=== PATIENT | female | born 1955 | race Caucasian/White ===

== ENCOUNTER 2020-06-30 13:44 | Outpatient (CLI) | payer MEDICARE, MEDICAID, SELFPAY ==
--- NOTE | ~2020-06-30 | MM_ITS ---
EXAMINATION: MM screening robbie BI w holly HISTORY: Screening mammogram TECHNIQUE: Craniocaudal and mediolateral oblique 3-D tomosynthesis images were obtained and synthetic 2-D images were generated. CAD analysis was submitted and interpreted. COMPARISON: 03/19/2019 BREAST PARENCHYMAL COMPOSITION: The breasts are extremely dense, which lowers the sensitivity of mamm ography. FINDINGS: There is no evidence of suspicious mass, calcification, or architectural distortion to sugg est malignancy in either breast. There has been no suspicious interval change. IMPRESSION: 1. No mammographic evidence of malignancy. 2. Recommend routine screening mammography in one year. BI-RADS Category 1: Negative Reviewed, dictated and finalized at location A.
== END 2020-06-30 13:45 | disposition home or self-care (01) ==
LOC: ANHIMG 13:59
PROVIDERS: PCP Family Medicine; Visit Provider Family Medicine
DX: Z12.31 Encounter for screening mammogram for malignant neoplasm of breast (principal)
CPT/HCPCS: 77063; 77067

== ENCOUNTER 2022-09-16 15:05 | Inpatient (IN) | payer MEDICARE, MEDICAID, SELFPAY ==
--- NOTE | ~2022-09-16 | XR_ITS ---
EXAMINATION: XR chest 2V DATE: 09/16/2022 20:46 INDICATION: Pneumonia. TECHNIQUE: Frontal and lateral views of the chest were obtained on 3 radiographs. COMPARISON: CT abdomen and pelvis 09/16/2022 FINDINGS: The lungs are hyperexpanded, consistent with emphysema. There are airspace opacities with v olume loss in left lower lobe, consistent with atelectasis. There is a reticulonodular pattern in rig ht lung and left lower lung zone. There is a small left pleural effusion. No pneumothorax. The heart size is normal. Pectus excavatum is noted. IMPRESSION: 1. Reticulonodular pattern in right lung and left lower lung zone, consistent with pneumonia. 2. Left lower lobe atelectasis. Consider chest CT with contrast to exclude bronchial obstruction. 3. Emphysema. 4. Small left pleural effusion. Reviewed, dictated and finalized at location A. 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 Reticulonodular pattern in right lung and left lower lung zone, consistent w ith pneumonia. 2. Left lower lobe atelectasis. Consider chest CT with contrast to exclude bron chial obstruction. 3. Emphysema. 4. Small left pleural effusion.
--- NOTE | ~2022-09-16 | CT_ITS ---
EXAMINATION: CT abdomen pelvis w con DATE: 09/16/2022 19:59 INDICATION: Right lower quadrant abdominal pain. TECHNIQUE: Computed tomography (CT) of the abdomen and pelvis was performed with 97 mL Omnipaque 350 intravenous contrast. Automated exposure control and iterative reconstruction technique were employed . The dose-length product was 165.45 mGy-cm. COMPARISON: Head CT 12/28/2016 FINDINGS: The visualized portions of the lung bases demonstrate atelectasis in left lower lobe. There are tree-in-bud opacities in the lungs bilaterally. There is a trace left pleural effusion. The hear t size is normal. There is a trace pericardial effusion. There are cysts in the liver measuring up to 8 mm. The spleen, gallbladder, pancreas, adrenal glands, and kidneys are normal. There are no dilate d loops of bowel. The appendix is not visualized. There is a right obturator hernia containing a wall of small bowel. There is a chronic 2.9 x 1.7 cm cyst in the left retroperitoneum, likely a lymphangi keira. There are no pathologically enlarged lymph nodes. There is no free intraperitoneal fluid. There is lumbar levoscoliosis and mild spondylosis. IMPRESSION: 1. Right obturator hernia containing a wall of nonobstructed small bowel. 2. Bilateral pneumonia. Reviewed, dictated and finalized at location A. [employer]SELING [employer]W
--- NOTE | ~2022-09-16 | CT_ITS ---
EXAMINATION:CT diagnostic chest w con DATE: 09/16/2022 21:58 INDICATION: Abdominal chest radiographs. TECHNIQUE: Computed tomography (CT) of the chest was performed with 75 mL Omnipaque 350 intravenous c ontrast. Automated exposure control and iterative reconstruction technique were employed. The dose-le ngth product (DLP) was 139.95 mGy-cm. COMPARISON: Chest CT 11/21/2016 FINDINGS: There is severe emphysema. There are centrilobular nodules and tree-in-bud opacities in rig ht lower lobe. There are airspace opacities with air bronchograms and volume loss in right middle lob e. There are centrilobular nodules in anterior segment right upper lobe. There are tree-in-bud opacit ies and centrilobular nodules in left upper lobe. There are airspace opacities in lingula. There is c omplete collapse of left lower lobe. There is mucous plugging in left lower lobe. There is a trace le ft pleural effusion. The heart size is normal. No pericardial effusion. There is mild mediastinal and right hilar lymphadenopathy. Calcified left hilar lymph nodes are consistent with old granulomatous disease. There is pectus excavatum. IMPRESSION: 1. Diffuse lung disease, consistent with pneumonia. 2. Complete collapse of left lower lobe, likely secondary to mucous plugging. 3. Severe emphysema. 4. Mild mediastinal and right hilar lymphadenopathy, likely reactive. Reviewed, dictated and finalized at location A. AR TURNER
[2022-09-16 15:15] VITALS: BP 138/87; PULSE 88; RESP 20; TEMP 37; O2SAT 92
[2022-09-16 15:51] LABS: Basophils Absolute Auto 0.1 K/mm3 (0.0-0.1); Basophils Percent Auto 0.5 % (0.2-1.2); Eosinophils Absolute Auto 0.1 K/mm3 (0-0.3); Eosinophils Percent Auto 0.7 % (0-4.4); Hemoglobin 14.7 g/dL (12.0-15.0); Immature Granulocyte Absolute 0.07 K/mm3 (0.00-0.031); Immature Granulocyte Percent A 0.5 % (0-0.5); Lymphocytes Absolute Auto 1.31 K/mm3 (0.9-3.2); Lymphocytes Percent Auto 9.2 % (18.3-44.2); Mean Corpuscular HGB Conc 32.7 g/dl (32-36); Mean Corpuscular Hemoglobin 31.9 pg (26-34); Mean Corpuscular Volume 97.6 fl (80-100); Mean Platelet Volume 8.9 fl (7.4-10.4); Monocytes Absolute Auto 0.7 K/mm3 (0.1-0.6); Monocytes Percent Auto 5.1 % (2.6-8.5); Neutrophils Absolute Auto 11.9 K/mm3 (1.3-6.7); Platelet Count Result 273 k/mm3 (150-375); Red Blood Count 4.61 M/mm3 (4.2-5.4); Red Cell Distribution Width 12.6 % (11.5-14.5); White Blood Count 14.2 K/mm3 (4.5-10.0)
[2022-09-16 15:59] LABS: Alanine Aminotransferase 25 U/L (6-35); Albumin Level 3.9 g/dL (3.5-5.1); Alkaline Phosphatase 64 U/L (38-126); Anion Gap 13 mmol/L (8-16); Aspartate Amino Transferase 51 U/L (14-36); Blood Urea Nitrogen 12 mg/dL (7-17); Calcium 8.4 mg/dL (8.4-10.2); Carbon Dioxide 35 mmol/L (22-30); Chloride 87 mmol/L (98-107); Estimated CRCL calculation 135 ml/min; Estimated Glomerular Filt Rate > 60; Glucose 94 mg/dL (65-110); Potassium 3.4 mmol/L (3.4-5.0); Sodium 135 mmol/L (137-145)
[2022-09-16 16:34] LABS: Lipase < 10 U/L (23-300)
[2022-09-16 18:29] VITALS: BP 132/65; PULSE 95; RESP 18; TEMP 36.7; O2SAT 92
--- NOTE | 2022-09-16 19:13 | ED.ABDPAIN ---
HPI - Abdominal Pain General Chief Complaint: Abdominal Pain <Roxanne Roach PA-C - Last Filed: 09/17/22 02:09> Stated Complaint: abdominal pain x 2 days <Roxanne Roach PA-C - Last Filed: 09/17/22 02:09> Time Seen by Provider: 09/16/22 19:08 <Roxanne Roach PA-C - Last Filed: 09/17/22 02:09> History of Present Illness HPI narrative: Patient is a 67-year-old female with a history of COPD on 4L home o2, here for evaluation of right sided abdominal pain for the past 2 days. Patient does not elaborate on the complaint and is a poor historian. Additionally notes urinary frequency, but denies urgency or hematuria. Denies history of UTIs. Additionally states that she is nauseated but denies vomiting. She tells me she has been coughing for several days, shortness of breath is at her baseline. She is unsure when her last bowel movement was. No chest pain, fevers or chills, rashes. <Roxanne Roach PA-C - Last Filed: 09/17/22 02:09> Related Data Home Medications: Home Medications Medication Instructions Recorded Confirmed albuterol sulfate 2.5 mg/3 mL 2.5 mg inhalation Q4H PRN 09/17/22 09/17/22 (0.083 %) solution for nebulization Shortness Of Breath albuterol sulfate 90 mcg/actuation 2 puff inhalation Q4H PRN 09/17/22 09/17/22 aerosol inhaler Shortness Of Breath buspirone 5 mg tablet 5 mg PO TID PRN Anxiety 09/17/22 09/17/22 cetirizine 10 mg tablet 10 mg PO DAILY 09/17/22 09/17/22 fluticasone fur. 100 mcg-umeclid 1 inh inhalation DAILY 09/17/22 09/17/22 62.5 mcg-vilant 25 mcg inhalat.powder (Trelegy Ellipta) hydrocodone 10 mg-acetaminophen 1 tablet PO Q6H PRN Pain 09/17/22 09/17/22 325 mg tablet ipratropium bromide 0.02 % 0.5 mg inhalation TID PRN 09/17/22 09/17/22 solution for inhalation Shortness Of Breath levofloxacin 750 mg tablet 750 mg PO DAILY 09/17/22 09/17/22 levothyroxine 75 mcg tablet 75 mcg PO DAILY 09/17/22 09/17/22 nicotine 21 mg/24 hr daily 21 mg transdermal DAILY 09/17/22 09/17/22 transdermal patch omeprazole 20 mg capsule,delayed 20 mg PO DAILY 09/17/22 09/17/22 release sertraline 50 mg tablet 50 mg PO DAILY 09/17/22 09/17/22 sucralfate 1 gram tablet 1 g PO AC 09/17/22 09/17/22 <AISHA Pretty Last Filed: 09/17/22 02:09> Allergies/Adverse Reactions: Allergies Allergy/AdvReac Type Severity Reaction Status Date / Time famotidine Allergy Intermediate NAUSEA Verified 09/17/22 01:54 tramadol Allergy Intermediate NAUSEA/VOMI Verified 09/17/22 01:54 TTING ketorolac Allergy Unknown Anxiety Verified 09/17/22 01:54 Penicillins Allergy Unknown Rash Verified 09/17/22 01:54 Sulfa (Sulfonamide Allergy Unknown Rash Verified 09/17/22 01:54 Antibiotics) <AISHA Pretty Last Filed: 09/17/22 02:09> Review of Systems Review of Systems: Gen: Denies fevers or chills Eyes: Denies eye pain or visual change ENT: Denies congestion Respiratory: Denies shortness of breath or cough CV: Denies chest pain or palpitations GI: Reports right-sided abdominal pain and nausea. : reports urinary frequency. Denies burning, urgency,or hematuria Musculoskeletal: Denies back pain or muscle pain Neuro: Denies numbness, tingling, weakness or focal weakness Skin: Denies rash Except as documented, all other systems reviewed and negative <AISHA Pretty Last Filed: 09/17/22 02:09> [facility] Family History Family History: Family History (Updated 06/21/18 @ 09:27 by DOCTOR UNKNOWN) Mother Family history of congestive heart failure, Onset Age: 67 <AISHA Pretty Last Filed: 09/17/22 02:09> Social History Social History: Social History Smoking packs per day: 1 Smoking cigarettes per day: 20.0 Years smoked: 50 Smoking pack-years: 50.00 Smoking status: Current every day smoker Tobacco type: cigarettes Alcohol intake: never Substance use: never
[2022-09-16 19:20] LABS: Appearance Urine Clear (Clear); Bilirubin Urine 2+ (Negative); Blood Urine Negative (Negative); Color Urine Yellow (Yellow); Glucose Urine UA Negative (Negative); Ketones Urine 4+ mg/dL (Negative); Leukocyte Esterase Ur Trace LEU/UL (Negative); Nitrate Urine Negative (Negative); Protein Urine Negative (Negative); pH Urine 6.5 (5.0-9.0)
[2022-09-16 19:25] LABS: Mucus Urine Few /lpf; RBC Urine 0-2 /hpf (0-2); Squamous Epithelial Cell Urine Rare /hpf (Few)
[2022-09-16 19:26] LABS: Add Urine Microscopic? YES
--- NOTE | 2022-09-16 19:30 | ECG_ITS ---
Measurements Intervals [place] Rate: 96 P: 82 IN: 137 QRS: 99 QRSD: 90 T: 75 QT: 346 QTc: 437 Interpretive Statements SINUS RHYTHM RIGHT AXIS DEVIATION RIGHT ATRIAL ENLARGEMENT LEFT ATRIAL ENLARGEMENT CONSIDER ANTERIOR INFARCT, AGE INDETERMINATE BASELINE ARTIFACT- I, II, III, AVR, AVL, AVF, V1-V6 ABNORMAL ECG NO PREVIOUS ECG AVAILABLE FOR COMPARISON Electronically Signed On 09-17-2022 6:43:13 [employer]ODUCTION WORK[employer] by Elvin Boles D.O.
[2022-09-16] MEDS: SODIUM CHLORIDE 0.9% IV 1,000 ML 999 ML IV CONT ×2 (19:43→22:34)
[2022-09-16 21:58] LABS: Lactic Acid Reflex 0.9 mmol/L (0.7-2.0)
[2022-09-16 22:24] LABS: Influenza A QL RT-PCR Negative (Negative); Influenza B QL RT-PCR Negative (Negative); SARS-CoV-2 RNA PCR Negative
[2022-09-16 22:35] VITALS: BP 111/65; PULSE 96; RESP 22; O2SAT 97
[2022-09-16] MEDS: ALBUTEROL SULFATE NEB 2.5 MG/3 ML INH 5 MG INHALATION (23:26)
[2022-09-16 23:46] LABS: Alveolar/Arterial O2 Gradient 142.2 mmHg; Base Excess ABG 4.4 mEq/l (+/-2.0); Fractional Inspired Oxygen 36 %; HCO3 ABG 30.3 mEq/l (22.0-26.0); Oxygen Content ABG 18.1 %vol (16.0-22.0); Oxygen Saturation ABG 89.5 % (95.0-100.0); Oxyhemoglobin 88.3 % THb (90.0-100.0); PCO2 ABG 49.5 mmHg (35.0-45.0); PO2 ABG 57.1 mmHg (80.0-100.0); PO2 FiO2 Ratio Arterial Blood 1.59 %; Total Hemoglobin 14.6 g/dL (12.0-18.0); pH ABG 7.404 (7.350-7.450)
[2022-09-16 23:48] LABS: Device NASAL CANNULA; Modified Allen's Test Pass; Site Drawn RIGHT RADIAL
[2022-09-16 23:59] VITALS: PULSE 92; RESP 26
[2022-09-17] VITALS (15 sets, daily range): BP systolic 108–124; BP diastolic 42–62; PULSE 78–96; RESP 16–20; TEMP 36.7–37.2; O2SAT 93–97; BMI 12.2; BMI 12.4
[2022-09-17] MEDS: SODIUM CHLORIDE 0.9% IV 1,000 ML 150 ML IV CONT (00:27)
--- NOTE | 2022-09-17 01:12 | PC.NURSE ---
This patient, Charlotte De La Torre, was admitted to 2 Medical Room 242-01. Patient/family oriented to hospital policies and general routines including ID bracelet, bed and alarms, visiting hours, pain management, procedures, bathroom and other care routines, personal items, smoking policy, room service/diet, and visiting hours. Information on how to activate the Rapid Response Team has been discussed. Patient/Family are encouraged to report perceived risks to care and to ask questions if they do not understand what they are told or what they should do. arrived at 0035
--- NOTE | 2022-09-17 06:14 | PC.NURSE ---
called DO Bethea pt c/o pain, pt awake now pt didn't have difficulty swallowing water at bedside, DO Bethea asked this nurse to see how pt did with swallowing, pt swallowed without difficulty. Pt informed DO Bethea to come see pt and restart medication.
--- NOTE | 2022-09-17 06:35 | PM.IMHP ---
H&P: HPI History of Present Illness Date/Time: 09/17/22 06:35 Chief Complaint: Shortness of breath Narrative: 67-year-old female with a past medical history of COPD, chronic hypoxic respiratory failure, hypothyroidism, anxiety depression, GERD and chronic tobacco use who presented to the ER initially with a complaint of abdominal pain and then subsequently changed her chief complaint to shortness of breath. The patient is a poor historian and is only giving short answers that are not helpful. I asked the patient infected obtain records from her last hospitalization which was evidently at [facility] recently and the patient refused to give permission. She stated that she did not treat staff well. She does not think that they treated will was wrong with her appropriately. She could not tell me what was wrong with her at that time makes ever that she could not breathe. The patient has been having a cough productive of green sputum for ?quite a while?. She cannot tell me exactly how long that this is she says a lease has been going on for a month or more. She denies any fevers or chills. She denies any significant chest pain. She states that she cannot breathe. However she is still continued to smoke up to a pack of cigarettes per day. She has had progressive weight loss but cannot tell me how much weight she has lost or over what time period. However her BMI in an office note from 2018 was 19. Her weight at that time was 42.2 kg. There is a note from Dr. Boles's office that stated the patient has a history of a mediastinal mass for which she was supposed to have a bronchoscopy. 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 The patient states she never went for biopsy of this. She reports that she does not know when she out a last bowel movement. She reports frequent headaches. She simply shrugs 1 ask her review of systems regarding her urinary track or stomach. Her initial complaints to the ER was abdominal pain and she recall reported right lower abdominal pain into the . On exam the patient's abdomen is diffusely tender and firm. No palpable hernia appreciated. Hypoactive bowel sound. Voluntary guarding. Review of systems limited due to lack of patient cooperation. Review of Systems Review of Systems: 12 systems were reviewed with pertinent positives and negatives per HPI. Except as documented in the HPI, all other systems were reviewed and are negative. 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 Chronic respiratory failure with hypoxia, on home O2 therapy Continuous tobacco abuse COPD (chronic obstructive pulmonary disease) Kidney stones Migraines Myocardial infarction (~2000) Ovarian cancer Severe protein-calorie malnutrition Surgical History Surgical History (Updated 09/17/22 @ 07:43 by Jayleen Kaur DO) S/P cubital tunnel release Bilateral October 2015 right December 2015 left Status post cataract extraction of both eyes with insertion of intraocular lens Status post total abdominal hysterectomy and bilateral salpingo-oophorectomy (LAURENT-BSO) Family History Family History Mother Family history of congestive heart failure, Onset Age: 67 Social History Social History (Updated 09/17/22 @ 07:42 by Jayleen Kaur DO) Social History: The patient states she lives with her son and daughter. She has smoked a pack of cigarettes per day since he was a teenager. She denies any significant alcohol or illicit substance use. Code status: Full code Surrogate decision makers: Her children. However she would not want long-term intubation or trach and PEG. Smoking packs per day: 1 Smoking cigarettes per day: 20.0 Years smoked: 50 Smokin
[2022-09-17] MEDS: IPRATROPIUM BR 0.02% INH SOLN 0.5 MG/2.5 ML VIAL INHALATION ×3 (08:11→19:56)
[2022-09-17] MEDS: ALBUTEROL SULFATE NEB 2.5 MG/3 ML INH 5 MG INHALATION ×3 (08:11→19:55)
[2022-09-17] MEDS: guaiFENesin 12 HR 600 MG TABCR 1200 MG PO ×2 (09:00→20:09)
[2022-09-17] MEDS: LEVOTHYROXINE SODIUM 75 MCG TABLET PO (09:02)
[2022-09-17] MEDS: SERTRALINE HCL 50 MG TABLET PO (09:02)
[2022-09-17] MEDS: LORATADINE 10 MG TABLET PO (09:02)
[2022-09-17] MEDS: PANTOPRAZOLE 40 MG TABLET PO (09:02)
[2022-09-17] MEDS: SUCRALFATE 1 GM TABLET PO ×3 (09:02→17:21)
[2022-09-17] MEDS: FLUTICASONE/UMECLIDIN/VILANTER 100-62.5-25 MCG ELLIPTA 1 PUFF INHALATION (09:11)
--- NOTE | 2022-09-17 11:43 | PM.IMPN ---
Progress Note: A&P Assessment and Plan (1) Chronic respiratory failure with hypoxia, on home O2 therapy: Code(s): J96.11 - Chronic respiratory failure with hypoxia; Z99.81 - Dependence on supplemental oxygen Status: Acute Assessment and Plan: -4 L of O2 with a pulse ox of 94 -ABG revealed compensated respiratory alkalosis -nebulizer treatment q4 hours -respiratory therapy consulted -patient receiving ipratropium bromide and albuterol every 6 hours -continue Trelegy Ellipta (2) Bilateral pneumonia: Qualifiers: Lung location: unspecified part of lung Pneumonia type: due to unspecified organism Qualified Code(s): J18.9 - Pneumonia, unspecified organism Code(s): J18.9 - Pneumonia, unspecified organism Status: Acute Assessment and Plan: -chest x-ray revealed bilateral pneumonia, emphysema, small left pleural effusion. CT chest ordered per radiologist's recommendation to rule out bronchial obstruction. CT chest revealed complete collapse of left lower lobe, likely secondary to mucus plugging. -patient prescribed ceftriaxone 1 g and azithromycin 500 mg -Legionella pneumobilia Ag, Pneumococcal antigen, mycoplasma pneumonia Ab, Procalcitonin ordered. -blood cultures pending -sputum culture pending (3) Shortness of breath: Code(s): R06.02 - Shortness of breath Status: Acute Assessment and Plan: See above (4) Severe protein-calorie malnutrition: Code(s): E43 - Unspecified severe protein-calorie malnutrition Status: Acute Assessment and Plan: BMI of 12.4 Patient on regular diet (5) Continuous tobacco abuse: Code(s): Z72.0 - Tobacco use Status: Acute Assessment and Plan: -nicotine patch p.r.n. Time Spent With Patient Time with patient: Greater than 35 minutes Subjective Date/time seen: 09/17/22 11:43 Interval history: 67-year-old female with a chronic history of COPD, tobacco abuse, chronic respiratory failure with hypoxia, and anorexia. Patient is sitting on the edge of the bed in and is standoffish when interviewing patient about symptoms. Patient presented to the ER on 09/25/2022 with complaints of shortness of breath. She appears to be very cachectic BMI of 12.4. Patient tripoding and unable to complete full sentences without becoming short of breath. Patient does state that she has some chest discomfort with inspiration. Patient states that she is still having some shortness of breath and she has a mild cough with sputum production. Patient denies fever, body aches, chest pain, congestion, swelling of the lower extremity, Exam Narrative: GENERAL: Cachectic, tripoding HENMT: moist mucous membranes EYES: EOM intact b/l NECK: no lymphadenopathy RESPIRATORY: Distant breath sounds, labored breathing CARDIO: RRR GI: soft, nontender, bowel sounds present SKIN: no rashes EXTREMITIES: no edema, redness or tenderness Objective Data Vital Signs Vital Signs: Vital Signs - 24 hr 09/16/22 15:15 09/16/22 18:29 09/16/22 22:35 Temperature 98.6 F 98.1 F Pulse Rate 88 95 96 Respiratory Rate 20 18 22 H Blood Pressure 138/87 132/65 111/65 Pulse Oximetry 92 92 97 Oxygen Delivery Nasal Cannula Oxygen Flow Rate 4 09/16/22 23:59 09/17/22 01:15 09/17/22 00:35 Temperature 98.9 F Pulse Rate 92 88 Respiratory Rate 26 H 18 Blood Pressure 109/45 L Pulse Oximetry 97 97 Oxygen Delivery Nasal Cannula Oxygen Flow Rate 4 09/17/22 05:15 09/17/22 06:16 09/17/22 08:13 Temperature 98.0 F 98.0 F Pulse Rate 82 82 78 Respiratory Rate 17 17 18 Blood Pressure 124/56 L 124/56 L Pulse Oximetry 96 96 Oxygen Delivery Nasal Cannula Oxygen Flow Rate 4 09/17/22 08:18 09/17/22 08:26 Temperature Pulse Rate 78 89 Respiratory Rate 18 20 Blood Pressure Pulse Oximetry 94 Oxygen Delivery Nasal Cannula Oxygen Flow Rate 4 Intake/Output Intake/Output: Intake & Output 09/14/22 09/15/22
[2022-09-17 11:44] LABS: Hematocrit 40.7 % (37.0-47.0); Hemoglobin 13.3 g/dL (12.0-15.0); Mean Corpuscular HGB Conc 32.7 g/dl (32-36); Mean Corpuscular Hemoglobin 31.7 pg (26-34); Mean Corpuscular Volume 97.1 fl (80-100); Mean Platelet Volume 9.1 fl (7.4-10.4); Platelet Count Result 297 k/mm3 (150-375); Red Blood Count 4.19 M/mm3 (4.2-5.4); Red Cell Distribution Width 12.7 % (11.5-14.5); White Blood Count 13.3 K/mm3 (4.5-10.0)
[2022-09-17 12:22] LABS: Anion Gap 8 mmol/L (8-16); Blood Urea Nitrogen 10 mg/dL (7-17); Calcium 7.2 mg/dL (8.4-10.2); Carbon Dioxide 32 mmol/L (22-30); Chloride 98 mmol/L (98-107); Estimated CRCL calculation 75 ml/min; Estimated Glomerular Filt Rate > 60; Glucose 97 mg/dL (65-110); Potassium 3.2 mmol/L (3.4-5.0); Sodium 138 mmol/L (137-145)
[2022-09-17 12:43] LABS: Procalcitonin 0.1 ng/mL
[2022-09-17] MEDS: HYDROcodone/acetaminophen (*CRX) 10-325 MG TABLET 1 TAB PO (14:15)
[2022-09-17] MEDS: POTASSIUM CHLORIDE 20 MEQ PACKET (FOR LIQUID) 40 MEQ PO (14:15)
[2022-09-18] VITALS (10 sets, daily range): BP systolic 114–144; BP diastolic 55–60; PULSE 74–94; RESP 16–20; TEMP 36.5–37.2; O2SAT 90–93
[2022-09-18] MEDS: HYDROcodone/acetaminophen (*CRX) 10-325 MG TABLET 1 TAB PO ×2 (00:59→12:11)
[2022-09-18] MEDS: IPRATROPIUM BR 0.02% INH SOLN 0.5 MG/2.5 ML VIAL INHALATION ×3 (01:40→14:50)
[2022-09-18] MEDS: ALBUTEROL SULFATE NEB 2.5 MG/3 ML INH 5 MG INHALATION ×3 (01:40→14:50)
[2022-09-18 05:35] LABS: Basophils Percent Auto 0.1 % (0.2-1.2); Eosinophils Percent Auto 0.1 % (0-4.4); Hematocrit 34.3 % (37.0-47.0); Hemoglobin 11.2 g/dL (12.0-15.0); Immature Granulocyte Absolute 0.07 K/mm3 (0.00-0.031); Immature Granulocyte Percent A 0.7 % (0-0.5); Lymphocytes Absolute Auto 1.59 K/mm3 (0.9-3.2); Lymphocytes Percent Auto 16.6 % (18.3-44.2); Mean Corpuscular HGB Conc 32.7 g/dl (32-36); Mean Corpuscular Hemoglobin 31.6 pg (26-34); Mean Corpuscular Volume 96.9 fl (80-100); Monocytes Absolute Auto 0.7 K/mm3 (0.1-0.6); Monocytes Percent Auto 7.2 % (2.6-8.5); Neutrophils Absolute Auto 7.2 K/mm3 (1.3-6.7); Neutrophils Percent Auto 75.3 % (45.5-73.1); Platelet Count Result 274 k/mm3 (150-375); Red Blood Count 3.54 M/mm3 (4.2-5.4); Red Cell Distribution Width 12.6 % (11.5-14.5); White Blood Count 9.6 K/mm3 (4.5-10.0)
[2022-09-18 05:51] LABS: Anion Gap 4 mmol/L (8-16); Blood Urea Nitrogen 9 mg/dL (7-17); Calcium 7.1 mg/dL (8.4-10.2); Carbon Dioxide 36 mmol/L (22-30); Chloride 94 mmol/L (98-107); Estimated CRCL calculation 75 ml/min; Estimated Glomerular Filt Rate > 60; Glucose 86 mg/dL (65-110); Lactate Dehydrogenase 151 U/L (120-246); Potassium 2.6 mmol/L (3.4-5.0); Sodium 134 mmol/L (137-145)
--- NOTE | 2022-09-18 06:00 | PC.NURSE ---
REPEAT LABS AT 1300 CALL HOSPITALIST IF POTASSIUM LESS THAN 3.[address] COLIN
[2022-09-18] MEDS: POTASSIUM CHLORIDE 20 MEQ TABLET 80 MEQ PO (06:04)
[2022-09-18] MEDS: LEVOTHYROXINE SODIUM 75 MCG TABLET PO (06:05)
[2022-09-18] MEDS: LORATADINE 10 MG TABLET PO (08:44)
[2022-09-18] MEDS: SERTRALINE HCL 50 MG TABLET PO (08:45)
[2022-09-18] MEDS: PANTOPRAZOLE 40 MG TABLET PO (08:45)
[2022-09-18] MEDS: FLUTICASONE/UMECLIDIN/VILANTER 100-62.5-25 MCG ELLIPTA 1 PUFF INHALATION (09:35)
[2022-09-18] MEDS: POTASSIUM CHLORIDE INJ 40 MEQ in SODIUM CHLORIDE 0.9% IV 500 ML 130 MEQ IVPB (10:03)
--- NOTE | 2022-09-18 11:49 | PM.IMPN ---
Progress Note: A&P Assessment and Plan (1) Chronic respiratory failure with hypoxia, on home O2 therapy: Code(s): J96.11 - Chronic respiratory failure with hypoxia; Z99.81 - Dependence on supplemental oxygen Status: Acute Assessment and Plan: -4 L of O2 with a pulse ox of 94 -ABG revealed compensated respiratory alkalosis -nebulizer treatment q4 hours -respiratory therapy consulted -patient receiving ipratropium bromide and albuterol every 6 hours -continue Trelegy Ellipta (2) Bilateral pneumonia: Qualifiers: Lung location: unspecified part of lung Pneumonia type: due to unspecified organism Qualified Code(s): J18.9 - Pneumonia, unspecified organism Code(s): J18.9 - Pneumonia, unspecified organism Status: Acute Assessment and Plan: -chest x-ray revealed bilateral pneumonia, emphysema, small left pleural effusion. CT chest ordered per radiologist's recommendation to rule out bronchial obstruction. CT chest revealed complete collapse of left lower lobe, likely secondary to mucus plugging. -patient prescribed ceftriaxone 1 g and azithromycin 500 mg -Legionella pneumobilia Ag, Pneumococcal antigen, mycoplasma pneumonia Ab, Procalcitonin ordered. -blood cultures no growth to date -sputum culture: Few epithelial cells and many white blood cells seen (3) Shortness of breath: Code(s): R06.02 - Shortness of breath Status: Acute Assessment and Plan: See above (4) Severe protein-calorie malnutrition: Code(s): E43 - Unspecified severe protein-calorie malnutrition Status: Acute Assessment and Plan: BMI of 12.4 Patient on regular diet Discussed patient's weight with her. Patient states that she has lost around 20 lb over this past year. She states that when she is at work she just does not remember to eat. Patient is distant and is not forthcoming with information. Discussed comfort measures with patient and she was not receptive. (5) Noncompliance: Code(s): Z91.199 - Patient's noncompliance with other medical treatment and regimen due to unspecified reason Status: Acute Assessment and Plan: -patient has refused several medications including her DVT prophylactic heparin, her potassium p.o., Carafate, and Mucinex. (6) Hypokalemia: Code(s): E87.6 - Hypokalemia Status: Acute Assessment and Plan: -potassium this morning 2.6 -patient receiving 40 mEq potassium chloride IV x1 -patient given IV potassium chloride due to refusal of p.o. medication -patient's potassium after 40 mEq IV of potassium chloride was 3.6 (7) Continuous tobacco abuse: Code(s): Z72.0 - Tobacco use Status: Acute Assessment and Plan: -nicotine patch p.r.n. Time Spent With Patient Time with patient: Greater than 35 minutes Subjective Date/time seen: 09/18/22 11:49 Interval history: 67-year-old female with a chronic history of COPD, tobacco abuse, chronic respiratory failure with hypoxia, and anorexia. Patient is lying in bed in and is standoffish when interviewing patient about symptoms. Patient complains of shortness of breath at rest. She is cachectic with a BMI of 12.4. Patient tripoding and unable to complete full sentences without becoming short of breath. Patient does state that she has some chest discomfort with inspiration. Patient states that she has a mild cough with sputum production. Patient denies fever, body aches, chest pain, congestion, swelling of the lower extremity. Exam Narrative: GENERAL: Cachectic, tripoding HENMT: moist mucous membranes EYES: EOM intact b/l NECK: no lymphadenopathy RESPIRATORY: Distant breath sounds, labored breathing CARDIO: RRR GI: soft, nontender, bowel sounds present SKIN: no rashes EXTREMITIES: no edema, redness or tenderness Objective Data Vital Signs Vital Signs: Vital Signs - 24 hr 09/17/22 11:50 09/17/22 14:12 09/17/22 14:28 Temperature P
[2022-09-18] MEDS: SUCRALFATE SUSP 100 MG/ML 10 ML UDC 1000 MG PO ×3 (12:07→20:19)
[2022-09-18 13:05] LABS: Anion Gap 2 mmol/L (8-16); Blood Urea Nitrogen 7 mg/dL (7-17); Calcium 7.2 mg/dL (8.4-10.2); Carbon Dioxide 35 mmol/L (22-30); Chloride 96 mmol/L (98-107); Estimated CRCL calculation 75 ml/min; Estimated Glomerular Filt Rate > 60; Glucose 111 mg/dL (65-110); Potassium 3.6 mmol/L (3.4-5.0); Sodium 133 mmol/L (137-145)
--- NOTE | 2022-09-18 22:18 | PCRCNOTE ---
Window of time for administration has passed. See next scheduled administration.
[2022-09-19] VITALS (11 sets, daily range): BP systolic 125–134; BP diastolic 52–71; PULSE 72–95; RESP 15–20; TEMP 36.7–37.1; O2SAT 94–96; BMI 12.4
[2022-09-19] MEDS: HYDROcodone/acetaminophen (*CRX) 10-325 MG TABLET 1 TAB PO ×3 (00:12→18:54)
[2022-09-19] MEDS: ALBUTEROL SULFATE NEB 2.5 MG/3 ML INH 5 MG INHALATION ×3 (02:24→21:00)
[2022-09-19] MEDS: IPRATROPIUM BR 0.02% INH SOLN 0.5 MG/2.5 ML VIAL INHALATION ×3 (02:24→21:00)
[2022-09-19] MEDS: SODIUM CHLOR 3% 15 ML NEB (RESPIRATORY THERAPY) 6 ML INHALATION ×2 (05:45→07:21)
[2022-09-19 06:22] LABS: Hemoglobin 11.5 g/dL (12.0-15.0); Mean Corpuscular HGB Conc 32.9 g/dl (32-36); Mean Corpuscular Hemoglobin 31.5 pg (26-34); Mean Corpuscular Volume 95.9 fl (80-100); Mean Platelet Volume 9.1 fl (7.4-10.4); Platelet Count Result 327 k/mm3 (150-375); Red Blood Count 3.65 M/mm3 (4.2-5.4); Red Cell Distribution Width 12.5 % (11.5-14.5); White Blood Count 5.8 K/mm3 (4.5-10.0)
[2022-09-19 06:49] LABS: Anion Gap 3 mmol/L (8-16); Blood Urea Nitrogen 6 mg/dL (7-17); Calcium 7.2 mg/dL (8.4-10.2); Carbon Dioxide 38 mmol/L (22-30); Chloride 95 mmol/L (98-107); Estimated CRCL calculation 75 ml/min; Estimated Glomerular Filt Rate > 60; Glucose 81 mg/dL (65-110); Magnesium 2.1 mg/dL (1.6-2.3); Potassium 3.2 mmol/L (3.4-5.0); Sodium 136 mmol/L (137-145)
[2022-09-19] MEDS: FLUTICASONE/UMECLIDIN/VILANTER 100-62.5-25 MCG ELLIPTA 1 PUFF INHALATION (07:22)
--- NOTE | 2022-09-19 07:52 | PM.DS ---
DS: Admitting Diagnosis Discharge Date 09/19/2022 Admitting Diagnosis Bilateral pneumonia DS: Discharge Diagnosis Discharge Diagnosis (1) Chronic respiratory failure with hypoxia, on home O2 therapy: Code(s): J96.11 - Chronic respiratory failure with hypoxia; Z99.81 - Dependence on supplemental oxygen Status: Acute (2) Bilateral pneumonia: Qualifiers: Lung location: unspecified part of lung Pneumonia type: due to unspecified organism Qualified Code(s): J18.9 - Pneumonia, unspecified organism Code(s): J18.9 - Pneumonia, unspecified organism Status: Acute (3) Shortness of breath: Code(s): R06.02 - Shortness of breath Status: Acute (4) Severe protein-calorie malnutrition: Code(s): E43 - Unspecified severe protein-calorie malnutrition Status: Acute (5) Noncompliance: Code(s): Z91.199 - Patient's noncompliance with other medical treatment and regimen due to unspecified reason Status: Acute (6) Hypokalemia: Code(s): E87.6 - Hypokalemia Status: Acute (7) Continuous tobacco abuse: Code(s): Z72.0 - Tobacco use Status: Acute DS: Summary Hospital Course Reason for hospitalization: Bilateral pneumonia with COPD exacerbation Hospital Course: 64-year-old female with a history of chronic emphysema and severe malnutrition. Patient presented to the ER on 09/16/2022 with complaints of abdominal pain, nausea, and cough. Patient is on 4 L of O2 at home. Patient's workup in the ED consisted of checks x-ray, CBC, CMP, and UA. White blood cell count of 14.2 on presentation. Patient's chest x-ray revealed bilateral pneumonia, follow-up CT was recommended to allow bronchial obstruction. CT revealed collapse of the left lower lobe likely due to mucous plugging. Patient was prescribed ceftriaxone and azithromycin IV, nebulizer treatments, and was followed by respiratory. Patient negative for flu and COVID. ABG revealed compensated respiratory alkalosis that is consistent with chronic emphysema. Preliminary sputum cultures revealed few epithelial cells and many white blood cells; preliminary blood cultures show no growth to date. Patient's white blood cell count has returned to normal during her stay. During patient's stay in the hospital her physical exam consistently revealed decreased breath sounds, tripoding, patient unable to complete full sentences, shortness of breath, and cachexia; although this is patient's baseline. Patient states that she is short of breath at rest most days and reveals that she does not think she will be able to return to work. Patient had hypokalemia, with a potassium of 2.6. She refuse p.o. potassium chloride, so she was given IV potassium chloride and potassium increased to 3.6. Patient has a BMI of 12.4. I discussed patient's weight with her and she stated that she unintentionally lost 20 lb over the past year. She said that while she is at work she does not remember to eat and is guarded when discussing the topic. We discussed comfort measures with the patient and she was not interested. I feels that the patient is ready to be discharged due to white blood cell count returning to baseline, patient is afebrile, no abdominal pain and no nausea. Patient concerned about going home due to that she is not eating. When questioning patient as to why she is not eating she said that the food in the hospital taste a bland. Patient said at home she usually drinks 2-1/2 boost a day and that her appetite comes and goes. Patient said that lack of appetite and early satiety has been present for years. Dietitian was consulted and gave recommendations/instructions patient should add Ensure t.i.d. with all meals, 20 g of protein per shake. Also advised Remeron for appetite stimulant. During patient's stay she had refused several medications including DVT prophylaxis, potassium supplementation, Carafate, and Mucinex. Discussed smok
[2022-09-19] MEDS: HEPARIN SODIUM 5,000 UNITS/ML VIAL 5000 UNITS SUB-Q (08:12)
[2022-09-19] MEDS: SUCRALFATE SUSP 100 MG/ML 10 ML UDC 1000 MG PO ×3 (08:12→20:22)
[2022-09-19] MEDS: LORATADINE 10 MG TABLET PO (08:13)
[2022-09-19] MEDS: PANTOPRAZOLE 40 MG TABLET PO (08:13)
[2022-09-19] MEDS: SERTRALINE HCL 50 MG TABLET PO (08:13)
--- NOTE | 2022-09-19 15:55 | PM.IMPN ---
Progress Note: A&P Assessment and Plan (1) Chronic respiratory failure with hypoxia, on home O2 therapy: Code(s): J96.11 - Chronic respiratory failure with hypoxia; Z99.81 - Dependence on supplemental oxygen Status: Acute Assessment and Plan: -4 L of O2 with a pulse ox of 94 -ABG revealed compensated respiratory alkalosis -nebulizer treatment q4 hours -respiratory therapy consulted -patient receiving ipratropium bromide and albuterol every 6 hours -continue Trelegy Ellipta (2) Bilateral pneumonia: Qualifiers: Lung location: unspecified part of lung Pneumonia type: due to unspecified organism Qualified Code(s): J18.9 - Pneumonia, unspecified organism Code(s): J18.9 - Pneumonia, unspecified organism Status: Acute Assessment and Plan: -chest x-ray revealed bilateral pneumonia, emphysema, small left pleural effusion. CT chest ordered per radiologist's recommendation to rule out bronchial obstruction. CT chest revealed complete collapse of left lower lobe, likely secondary to mucus plugging. -patient prescribed ceftriaxone 1 g and azithromycin 500 mg -Legionella pneumobilia Ag, Pneumococcal antigen, mycoplasma pneumonia Ab, Procalcitonin ordered. -blood cultures no growth to date -sputum culture: Few epithelial cells and many white blood cells seen (3) Shortness of breath: Code(s): R06.02 - Shortness of breath Status: Acute Assessment and Plan: See above (4) Severe protein-calorie malnutrition: Code(s): E43 - Unspecified severe protein-calorie malnutrition Status: Acute Assessment and Plan: BMI of 12.4 Patient on regular diet Discussed patient's weight with her. Patient states that she has lost around 20 lb over this past year. She states that when she is at work she just does not remember to eat. Patient is distant and is not forthcoming with information. Discussed comfort measures with patient and she was not receptive. Dietary consulted (5) Noncompliance: Code(s): Z91.199 - Patient's noncompliance with other medical treatment and regimen due to unspecified reason Status: Acute Assessment and Plan: -patient has refused several medications including her DVT prophylactic heparin, her potassium p.o., Carafate, and Mucinex. (6) Hypokalemia: Code(s): E87.6 - Hypokalemia Status: Acute Assessment and Plan: Potassium stable (7) Continuous tobacco abuse: Code(s): Z72.0 - Tobacco use Status: Acute Assessment and Plan: -nicotine patch p.r.n. Time Spent With Patient Time with patient: Greater than 35 minutes Subjective Date/time seen: 09/19/22 15:55 Interval history: 67-year-old female with a chronic history of COPD, tobacco abuse, chronic respiratory failure with hypoxia, and anorexia. Patient is lying in bed in and is standoffish when interviewing patient about symptoms. Patient complains of shortness of breath at rest. She is cachectic with a BMI of 12.4. Patient tripoding when sitting up shortness of breath has improved and patient is able to complete full sentences. Patient does state that she has some chest discomfort with inspiration. Patient states that she has a mild cough with sputum production. Patient denies fever, body aches, chest pain, congestion, swelling of the lower extremity. Patient was supposed to go home today but states that she does not have a ride. Exam Narrative: GENERAL: Cachectic, tripoding when sitting up HENMT: moist mucous membranes EYES: EOM intact b/l NECK: no lymphadenopathy RESPIRATORY: Distant breath sounds CARDIO: RRR GI: abdomen hard (could be due to thinness), nontender, bowel sounds present SKIN: no rashes EXTREMITIES: no edema, redness or tenderness Objective Data Vital Signs Vital Signs: Vital Signs - 24 hr 09/18/22 20:00 09/18/22 21:32 09/19/22 02:24 Temperature 98.9 F Pulse Rate 86 86 84 Respiratory Rate
[2022-09-20 02:42] VITALS: PULSE 82; RESP 18
[2022-09-20] MEDS: ALBUTEROL SULFATE NEB 2.5 MG/3 ML INH 5 MG INHALATION ×2 (02:42→09:03)
[2022-09-20] MEDS: IPRATROPIUM BR 0.02% INH SOLN 0.5 MG/2.5 ML VIAL INHALATION ×2 (02:42→09:03)
[2022-09-20 02:50] VITALS: PULSE 83; RESP 16
[2022-09-20 03:58] VITALS: BP 129/59; PULSE 83; RESP 16; TEMP 36.3; O2SAT 95
[2022-09-20] MEDS: HYDROcodone/acetaminophen (*CRX) 10-325 MG TABLET 1 TAB PO (05:14)
[2022-09-20] MEDS: LEVOTHYROXINE SODIUM 75 MCG TABLET PO (05:56)
--- NOTE | 2022-09-20 07:59 | PM.DS ---
DS: Admitting Diagnosis Discharge Date 09/20/2022 Admitting Diagnosis bilateral pneumonia with COPD exacerbation DS: Discharge Diagnosis Discharge Diagnosis (1) Chronic respiratory failure with hypoxia, on home O2 therapy: Code(s): J96.11 - Chronic respiratory failure with hypoxia; Z99.81 - Dependence on supplemental oxygen Status: Acute (2) Bilateral pneumonia: Qualifiers: Lung location: unspecified part of lung Pneumonia type: due to unspecified organism Qualified Code(s): J18.9 - Pneumonia, unspecified organism Code(s): J18.9 - Pneumonia, unspecified organism Status: Acute (3) Shortness of breath: Code(s): R06.02 - Shortness of breath Status: Acute (4) Severe protein-calorie malnutrition: Code(s): E43 - Unspecified severe protein-calorie malnutrition Status: Acute (5) Noncompliance: Code(s): Z91.199 - Patient's noncompliance with other medical treatment and regimen due to unspecified reason Status: Acute (6) Hypokalemia: Code(s): E87.6 - Hypokalemia Status: Acute (7) Continuous tobacco abuse: Code(s): Z72.0 - Tobacco use Status: Acute DS: Summary Hospital Course Reason for hospitalization: Bilateral pneumonia with COPD exacerbation Hospital Course: 64-year-old female with a history of chronic emphysema and severe malnutrition.? Patient presented to the ER on 09/16/2022 with complaints of abdominal pain, nausea, and cough.? Patient is on 4 L of O2 at home.? Patient's workup in the ED consisted of checks x-ray, CBC, CMP, and UA.? White blood cell count of 14.2 on presentation.? Patient's chest x-ray revealed bilateral pneumonia, follow-up CT was recommended to allow bronchial obstruction.? CT revealed collapse of the left lower lobe likely due to mucous plugging.? Patient was prescribed ceftriaxone and azithromycin IV, nebulizer treatments, and was followed by respiratory.? Patient negative for flu and COVID.? ABG revealed compensated respiratory alkalosis that is consistent with chronic emphysema.? Preliminary sputum cultures revealed few epithelial cells and many white blood cells; preliminary blood cultures show no growth to date.? Patient's white blood cell count has returned to normal during her stay.? During patient's stay in the hospital her physical exam consistently revealed decreased breath sounds, tripoding, patient unable to complete full sentences, shortness of breath, and cachexia; although this is patient's baseline. Patient states that she is short of breath at rest most days and reveals that she does not think she will be able to return to work.? Patient had hypokalemia, with a potassium of 2.6.? She refuse p.o. potassium chloride, so she was given IV potassium chloride and potassium increased to 3.6. Patient has a BMI of 12.4.? I discussed patient's weight with her and she stated that she unintentionally lost 20 lb over the past year.? She said that while she is at work she does not remember to eat and is guarded when discussing the topic.? We discussed comfort measures with the patient and she was not interested. I feels that the patient is ready to be discharged due to white blood cell count returning to baseline, patient is afebrile, no abdominal pain and no nausea.? Patient concerned about going home due to that she is not eating.? When questioning patient as to why she is not eating she said that the food in the hospital taste a bland.? Patient said at home she usually drinks 2-1/2 boost a day and that her appetite comes and goes.? Patient said that lack of appetite and early satiety has been present for years.? Dietitian was consulted and gave recommendations/instructions patient should add Ensure t.i.d. with all meals, 20 g of protein per shake.? Also advised Remeron for appetite stimulant.? During patient's stay she had refused several medications including DVT prophylaxis, potassium supplementation, Carafate, and Mucin
[2022-09-20] MEDS: PANTOPRAZOLE 40 MG TABLET PO (08:24)
[2022-09-20] MEDS: SERTRALINE HCL 50 MG TABLET PO (08:25)
[2022-09-20] MEDS: LORATADINE 10 MG TABLET PO (08:25)
[2022-09-20] MEDS: SUCRALFATE SUSP 100 MG/ML 10 ML UDC 1000 MG PO (08:26)
[2022-09-20 09:04] VITALS: PULSE 78; RESP 18
[2022-09-20 09:06] VITALS: O2SAT 94
[2022-09-20 16:21] LABS: Pneumococcal Antigen Urine Detected (Not Detected)
--- NOTE | 2022-09-21 10:55 | PC.NURSE ---
Sputum cx results show Strept Pneumoniae. Susceptible to Cefdinir. Patient dc on Cefdinir and Azithromycin.
[2022-09-22 10:58] LABS: Legionella pneumophila Ag Ur Not Detected (Not Detected)
== END 2022-09-20 11:45 | disposition home or self-care (01) | DRG 193 ==
LOC: ANHED 22:04 → ANH2MED 09-17 00:03
PROVIDERS: General Practice; Internal Medicine Critical Care Medicine; Physician Assistant; Admitting Provider Internal Medicine; Emergency Provider Emergency Medicine; PCP Family Medicine; Visit Provider Internal Medicine
DX: J18.9 Pneumonia, unspecified organism (principal); E43 Unspecified severe protein-calorie malnutrition; J96.11 Chronic respiratory failure with hypoxia; Z68.1 Body mass index [BMI] 19.9 or less, adult; E87.6 Hypokalemia; J43.9 Emphysema, unspecified; F17.210 Nicotine dependence, cigarettes, uncomplicated; Z99.81 Dependence on supplemental oxygen; K45.8 Other specified abdominal hernia without obstruction or gangrene; Z79.51 Long term (current) use of inhaled steroids; Z79.899 Other long term (current) drug therapy; Z79.891 Long term (current) use of opiate analgesic; Z88.0 Allergy status to penicillin; Z88.2 Allergy status to sulfonamides; Z88.8 Allergy status to other drugs, medicaments and biological substances; Z91.199 Patient's noncompliance with other medical treatment and regimen due to unspecified reason; Z20.822 Contact with and (suspected) exposure to COVID-19
CPT/HCPCS: 36415; 36600; 71046; 71260; 74177; 80048; 80053; 81001; 82805; 83605; 83615; 83690; 83735; 84145; 85025; 85027; 86738; 87040; 87070; 87086; 87147; 87181; 87186; 87205; 87449; 87502; 87899; 93005; 94640; 94667; 96361; 96365; 96366; 96367; 96372; 97161; 97165; 99285; A9270; G0378; J0456; J0696; J1644; J3480; J7030; J7040; Q9967; U0003; U0005